=== PATIENT | male | born 1980 | race Caucasian/White ===

== ENCOUNTER → 2016-12-30 | Day surgery (SDC) | payer OTHER ==
[~2016-12-30] VITALS: Ht 180.3 cm; Wt 90.7 kg
[~2016-12-30] MED LIST: 0.9% Sodium Chloride 1,000 ML IV PRN; OMEP20CA11 PO; Sodium Chloride LOK Flush 10 mL Syringe IV PRN; fentaNYL-PF 50 mCg/mL 2 mL Inj IVPUSH PRN
[2016-12-30 14:00] VITALS: BP 122/79; PULSE 66; O2SAT 100
[2016-12-30 15:23] VITALS: BP 121/84; PULSE 69; RESP 16; O2SAT 97
[2016-12-30 15:33] VITALS: BP 110/71; PULSE 66; RESP 16; O2SAT 97
[2016-12-30 15:43] VITALS: BP 111/69; PULSE 73; RESP 16; O2SAT 97
[2016-12-30 15:53] VITALS: BP 126/84; PULSE 78; RESP 16; O2SAT 99
--- NOTE | 2016-12-31 06:04 | ENDO ---
[address] [address] ENDOSCOPY PROCEDURE PATIENT: ALAN HAGEN : 1980 MR#: [id number] ADMIT: 12/30/2016 JOB ID: [id number] DATE OF SERVICE: 12/30/2016 PROCEDURE: Esophagogastroduodenoscopy INDICATION: Gastroesophageal reflux. Patients ASA classification is one. Mallampati score is two. MEDICATIONS: 1. Versed 6 mg. 2. Fentanyl 100 mcg. INSTRUMENT USED: [id number]. PROCEDURE DETAILS: After informed consent was obtained, the patient was brought into the GI suite, where he was placed on oxygen via nasal cannula and monitored with continuous pulse oximeter, telemetry, and blood pressure monitoring. A time-out was performed. Then, he was placed in a left lateral decubitus position. Medications were administered for sedation. A bite block was placed. The standard esophagogastroduodenoscopy scope was inserted through the bite block and advanced under direct visualization to the second portion of the duodenum without difficulty. FINDINGS: 1. In the duodenal bulb, the mucosa appeared to be slightly nodular. Multiple random biopsies were obtained. 2. Remainder of the duodenal exam to the second portion was otherwise unremarkable. 3. Normal-appearing pylorus, antrum and gastric body. 4. Retroflexed views in the gastric body revealed a normal-appearing cardia and fundus. 5. Multiple random biopsies were obtained throughout the antrum and body of the stomach to rule out H. pylori. 6. The GE junction was at approximately 41 cm. and there was one short tongue of salmon-colored mucosa extending from the GE junction which was biopsied. The remainder of the esophagus otherwise unremarkable. IMPRESSION: 1. Nodular duodenal bulb mucosa. 2. Slightly irregular gastroesophageal junction. RECOMMENDATIONS: 1. Continue PPI daily. 2. Reflux precautions. 3. Follow up in GI clinic. COMPLICATIONS: None. ESTIMATED BLOOD LOSS: Less than 5 mL. Cc: Primary care provider.
--- NOTE | 2017-01-03 17:12 | PATH ---
SURGICAL PATHOLOGY Attending Physician:Alannah Mix CASE STATUS: Signed Out PATIENT NAME: ALAN HAGEN PID: [id number] : 1980 DATE COLLECTED:12/30/2016 00:00 SPECIMEN: 1: Duodenum, Biopsy 2: Gastric, Biopsy 3: Esophagus, Biopsy CLINICAL HISTORY: 1). DUODENAL BULB BIOPSY 2). GASTRIC BIOPSY, RULE OUT H PYLORI 3). DISTAL ESOPHAGUS BIOPSY FINAL DIAGNOSIS: 1. Duodenal Bulb, Biopsy: Duodenal mucosa with gastric heterotopia. Negative for active inflammation, features of sprue, dysplasia or malignancy. 2. Stomach, Biopsy: Gastric antral and body mucosa with no diagnostic abnormality. No evidence of Helicobacter organisms on H&E stain. Negative for intestinal metaplasia, dysplasia or malignancy. 3. Distal Esophagus, Biopsy: Squamocolumnar junctional mucosa with chronic inflammation. Negative for intestinal metaplasia, dysplasia or malignancy. ICD10: K21.0 GROSS DESCRIPTION: Received three formalin-filled containers, each labeled with the patient's name. 1. Received in formalin, labeled with the patient's name and "duodenal bulbs" are two fragments of khan soft tissue ranging from 0.1 x 0.1 x 0.1 cm to 0.3 x 0.2 x 0.1 cm. The fragments are totally submitted in cassette 1A. 2. Received in formalin, labeled with the patient's name and "gastric biopsy" are three fragments of khan soft tissue ranging from 0.2 x 0.1 x 0.1 cm to 0.5 x 0.1 x 0.1 cm. The fragments are totally submitted in cassette 2A. 3. Received in formalin, labeled with the patient's name and "distal esophageal" is one fragment of khan, soft tissue measuring 0.3 x 0.2 x 0.1 cm. The fragment is totally submitted in cassette 3A. [id number]) ICD-9 CODES: CPT CODES: 1: 31896 2: 07426 3: 77713 Electronically Signed Out Owen Jauregui MD, Ph.D. [facility] Pathology [facility] [address], [place] [address] Technical component performed at [facility], [facility] [address], [place], [address]
== END | disposition home or self-care (01) ==
LOC: END 00:22
PROVIDERS: ATTEND Internal Medicine Gastroenterology
DX: K21.9 Gastro-esophageal reflux disease without esophagitis (principal); Q43.8 Other specified congenital malformations of intestine
CPT/HCPCS: 43239; G0500; J2250; J3010; J7030